=== PATIENT | male | born 1970 | race African-American/Black ===

== ENCOUNTER 2023-07-04 10:50 | Observation (INO) | payer BC ==
[~2023-07-04] VITALS: Ht 185.4 cm; Wt 87.4 kg
[2023-07-04] VITALS (12 sets, daily range): BP systolic 123–161; BP diastolic 76–92
[2023-07-04 11:35] LABS: BASO% 0.3 % (0-3); EOS% 2.8 % (0-8); HEMATOCRIT 43.4 % (39.0-50.0); HEMOGLOBIN 14.2 g/dl (14.0-18.0); LYMPH% 38.2 % (15-41); MEAN CELL VOLUME 90.2 fL CALC (80.0-100.0); MEAN CORPUSCULAR HGB 29.5 pG CALC (26.0-32.0); MEAN CORPUSCULAR HGB CONC 32.7 g/dL CAL (32.0-36.0); MONO% 8.3 % (2-13); NEUT# 1.77 thou/uL (1.82-7.42); NEUT% 50.4 % (42-76); RED BLOOD COUNT 4.81 mill/uL (4.70-6.10); RED CELL DISTRI WIDTH 11.7 % (11.5-15.5)
[2023-07-04 11:48] LABS: ALBUMIN 4.7 g/dL (3.2-5.0); ALKALINE PHOSPHATASE 84 u/l (38-126); ANION GAP 12 (6-22 (CALC)); BILIRUBIN, TOTAL 0.6 mg/dL (0.2-1.3); BUN 13 mg/dL (9-20); BUN/CREATININE RATIO 13 (12-20 (CALC)); CARBON DIOXIDE 26 mmol/l (22-30); CHLORIDE 104 mmol/l (95-108); CREATININE 1.1 mg/dL (0.7-1.3); GFR FOR AFR.AMER. > 60 ML/MIN (>=60 (CALC)); GFR OTHER RACES > 60 ML/MIN (>=60 (CALC)); SGOT/AST 40 u/l (17-59); SODIUM 138 mmol/l (137-146); TOTAL PROTEIN 8.5 g/dL (6.3-8.2)
[2023-07-04 12:19] LABS: TSH, 3RD GENERATION 0.71 uIU/mL (0.47 - 4.68)
[2023-07-04 12:31] LABS: URINE BILIRUBIN - DIPSTICK Negative (NEGATIVE); URINE BLOOD DIPSTICK Negative (NEGATIVE); URINE GLUCOSE - DIPSTICK Negative (NEGATIVE); URINE KETONE Negative (NEGATIVE); URINE LEUK ESTERASE Negative (NEGATIVE); URINE NITRITE - DIPSTICK Negative (Negative); URINE PROTEIN - DIPSTICK Negative (NEG-TRACE); URINE UROBILINOGEN - DIPSTICK 0.2 E.U./dL (0.2)
[2023-07-04 12:34] LABS: URINE COLOR Yellow
[2023-07-05 04:01] VITALS: BP 111/73
[2023-07-05 06:07] LABS: BASO% 0.4 % (0-3); EOS% 3.9 % (0-8); HEMATOCRIT 41.1 % (39.0-50.0); HEMOGLOBIN 13.8 g/dl (14.0-18.0); IMMATURE GRANULOCYTES 0.2 % (0.0-5.0); LYMPH% 38.6 % (15-41); MEAN CELL VOLUME 90.5 fL CALC (80.0-100.0); MEAN CORPUSCULAR HGB 30.4 pG CALC (26.0-32.0); MEAN CORPUSCULAR HGB CONC 33.6 g/dL CAL (32.0-36.0); NEUT# 2.15 thou/uL (1.82-7.42); NEUT% 46.9 % (42-76); RED BLOOD COUNT 4.54 mill/uL (4.70-6.10); RED CELL DISTRI WIDTH 11.7 % (11.5-15.5)
[2023-07-05 06:20] LABS: ALBUMIN 4.1 g/dL (3.2-5.0); ALKALINE PHOSPHATASE 84 u/l (38-126); ANION GAP 10 (6-22 (CALC)); BILIRUBIN, TOTAL 0.5 mg/dL (0.2-1.3); BUN 12 mg/dL (9-20); BUN/CREATININE RATIO 12 (12-20 (CALC)); CALCULATED LDLCHOLESTEROL 170 mg/dL (62-129 (CALC)); CARBON DIOXIDE 27 mmol/l (22-30); CHLORIDE 104 mmol/l (95-108); GFR FOR AFR.AMER. > 60 ML/MIN (>=60 (CALC)); GFR OTHER RACES > 60 ML/MIN (>=60 (CALC)); HDL CHOLESTEROL 48 mg/dL (39.0-59.0); POTASSIUM 4.4 mmol/l (3.5-5.1); SGOT/AST 34 u/l (17-59); SODIUM 138 mmol/l (137-146); TOTAL CHOLESTEROL 236 mg/dl (0-199); TOTAL PROTEIN 7.1 g/dL (6.3-8.2); TOTAL TRIGLYCERIDES 93 mg/dl (0-149); VLDL CHOLESTROL 19 mg/dl (8-62 (CALC))
[2023-07-05 06:52] VITALS: BP 106/67
[2023-07-05 10:29] VITALS: BP 115/75
[2023-07-05] MEDS ORDERED: AMLODIPINE BESYL5 MG PO (12:26)
== END 2023-07-05 14:36 | disposition home or self-care (01) | DRG 313 ==
LOC: ED 10:50 → ED-I 11:47 → ED 14:30 → MS2 14:31
PROVIDERS: Family Medicine; Nurse Practitioner Family; ADMIT Student in an Organized Health Care Education/Training Program; ATTEND Student in an Organized Health Care Education/Training Program
DX: R07.9 Chest pain, unspecified (principal); I10 Essential (primary) hypertension; F17.290 Nicotine dependence, other tobacco product, uncomplicated; Z56.6 Other physical and mental strain related to work; Z20.822 Contact with and (suspected) exposure to COVID-19
CPT/HCPCS: G0378; J1650; Q9967

== ENCOUNTER 2024-09-18 13:32 | Emergency (ER) | payer BC ==
[~2024-09-18] VITALS: Ht 185.4 cm; Wt 81.0 kg
[~2024-09-18 13:32] MED LIST: AMLODIPINE BESYL5 MG PO; LEXAPRO10 MG PO; TAMSULOSIN0.4 MG PO; XANAX0.25 MG PO
[2024-09-18 13:49] VITALS: BP 169/106
[2024-09-18 13:50] VITALS: BP 144/91
[2024-09-18 14:00] VITALS: BP 141/92
[2024-09-18 14:19] VITALS: BP 141/92
== END 2024-09-18 14:25 | disposition home or self-care (01) | DRG 603 ==
LOC: ED 13:32
PROC: 0H9HXZZ Drainage of Right Upper Leg Skin, External Approach (ICD-10-PCS; principal; 2024-09-18)
DX: L02.415 Cutaneous abscess of right lower limb (principal)